=== PATIENT | male | born 1995 | race Caucasian/White ===

== ENCOUNTER 2020-12-18 15:52 | Emergency (ER) | payer SELFPAY ==
[~2020-12-18] VITALS: Ht 172.7 cm; Wt 83.0 kg
== END 2020-12-18 18:40 | disposition home or self-care (01) ==
LOC: ED 15:52
DX: B34.9 Viral infection, unspecified (principal); Z20.822 Contact with and (suspected) exposure to COVID-19; Z87.891 Personal history of nicotine dependence
CPT/HCPCS: 71045; 99283-25; C9803; U0003

== ENCOUNTER 2021-09-17 07:08 | Emergency (ER) | payer OTHER ==
[~2021-09-17] VITALS: Ht 172.7 cm; Wt 72.9 kg
== END 2021-09-17 08:16 | disposition home or self-care (01) ==
LOC: ED 07:08
DX: J06.9 Acute upper respiratory infection, unspecified (principal); Z20.822 Contact with and (suspected) exposure to COVID-19; Z87.891 Personal history of nicotine dependence
CPT/HCPCS: 99284; C9803; U0003

== ENCOUNTER 2022-02-08 08:03 | Emergency (ER) | payer OTHER ==
[~2022-02-08] VITALS: Ht 172.7 cm; Wt 78.3 kg
[2022-02-08] MEDS ORDERED: ONDANSETRON ODT8 MG PO (11:25)
== END 2022-02-08 11:53 | disposition home or self-care (01) ==
LOC: ED 08:03
DX: R45.851 Suicidal ideations (principal); K21.9 Gastro-esophageal reflux disease without esophagitis; Z87.891 Personal history of nicotine dependence; Z20.822 Contact with and (suspected) exposure to COVID-19; F90.9 Attention-deficit hyperactivity disorder, unspecified type; F84.0 Autistic disorder
CPT/HCPCS: 36415; 80053; 81001; 84443; 85025; 87502; 99285; C9803; G0480; U0003